=== PATIENT | male | born 1965 | race Hispanic/Latino ===

== ENCOUNTER 2017-11-27 12:26 | Emergency (ER) | payer BC ==
[~2017-11-27] VITALS: Ht 167.6 cm; Wt 75.0 kg
[2017-11-27 14:51] LABS: HEMATOCRIT 44.8 % (38.0-50.0); HEMOGLOBIN 15.5 G/DL (12.5-16.6); MCH 29.9 PG (29.0-34.0); MCHC 34.6 G/DL (30.0-36.0); MCV 86.5 FL (86-99); PLATELET COUNT 242 K/uL (156-360); RBC DIS.WIDTH-CV 12.8 % (11.8-14.6); RBC DIS.WIDTH-SD 40.4 % (39-53); RED BLOOD COUNT 5.18 M/uL (4.00-5.50)
[2017-11-27 15:08] LABS: CHLORIDE 104 mEq/L (99-109); POTASSIUM 4.2 mEq/L (3.7-5.4); SODIUM 137 mEq/L (136-147)
[2017-11-27 15:10] LABS: GLUCOSE 117 mg/dL (70-99)
[2017-11-27 15:14] LABS: CREATININE 0.8 mg/dL (0.6-1.3)
[2017-11-27 15:15] LABS: UREA NITROGEN (BUN) 21 mg/dL (9-23)
[2017-11-27 15:22] LABS: GFR ESTIMATE (CALCULATED) > 59 mL/min/ (58.99-99999)
[2017-11-27 16:01] LABS: ALBUMIN 4.3 g/dL (3.2-4.8)
[2017-11-27 16:04] LABS: TOTAL PROTEIN 7.2 g/dL (6.4-8.3)
[2017-11-27 16:06] LABS: TOTAL BILIRUBIN 0.9 mg/dL (0.0-1.0)
[2017-11-27 16:07] LABS: ALKALINE PHOSPHATASE 57 IU/L (3-129)
[2017-11-27 16:09] LABS: AST (GOT) 21 IU/L (2-34); DIRECT BILIRUBIN 0.3 mg/dL (0.0-0.3)
[2017-11-27 16:10] LABS: ALT (GPT) 20 IU/L (3-49); LIPASE 9 U/L (1.0-51.0)
[2017-11-27 16:22] LABS: APPEARANCE SL.HAZY ((CLEAR)); BILIRUBIN NEGATIVE; BLOOD NEGATIVE; COLOR YELLOW ((YELLOW)); GLUCOSE (STRIP) NEGATIVE; KETONES 20; LEUKOCYTES NEGATIVE; NITRITE NEGATIVE; PROTEIN (STRIP) 30; SPECIFIC GRAVITY 1.028 (1.000-1.030); UROBILINOGEN 0.2 MG/DL (0.2-1.0)
[2017-11-27 16:54] LABS: BACTERIA RARE /HPF; EPITHELIAL CELLS NONE SEEN /HPF; MUCUS 3+ /LPF; RED BLOOD CELLS 0-5 /HPF (0-5); UCUL ADDED? NO; WHITE BLOOD CELLS 0-5 /HPF (0-5)
[2017-11-27 18:39] VITALS: BP 109/63
== END 2017-11-27 18:40 | disposition home or self-care (01) ==
LOC: EME 12:26
DX: K40.90 Unilateral inguinal hernia, without obstruction or gangrene, not specified as recurrent (principal); Z87.19 Personal history of other diseases of the digestive system
CPT/HCPCS: 74176; 80048; 80076; 81003; 83690; 85027; J1885